=== PATIENT | female | born 1995 | race African-American/Black ===

== ENCOUNTER 2021-04-30 09:24 | Emergency (ER) | payer BC, MEDICAID ==
[~2021-04-30] VITALS: Ht 157.5 cm; Wt 72.0 kg
[2021-04-30 09:51] VITALS: BP 96/55
[2021-04-30 10:37] LABS: BASOPHILS % 0.9 % (0.0-2.0); EOSINOPHILS % 1.1 % (0.0-5.0); HEMATOCRIT. 33.2 % (36.0-48.0); HEMOGLOBIN. 10.4 g/dL (12.0-16.0); LYMPHOCYTES % 23.4 % (20.0-50.0); MEAN CORPUSCULAR VOLUME 70.2 fL (81.0-99.0); MEAN PLATELET VOLUME 9.3 fl (7.4-10.4); NEUTROPHILS % 64.6 % (40.0-76.0); PLATELET 347 x1000/uL (130-400); RED BLOOD CELL COUNT 4.72 mill/uL (4.2-5.4); RED CELL DISTRIBUTION WIDTH 18.3 % (11.6-14.6)
[2021-04-30 10:46] LABS: CHLORIDE 108 mEq/L (98-107)
[2021-04-30 10:52] LABS: HCG SCREEN NEGATIVE
[2021-04-30] MEDS ORDERED: FUROSEMIDE 40MG/4ML VIAL IVP ONE (12:00)
[2021-04-30] MEDS ORDERED: FUROSEMIDE 20MG/2ML VIAL IVP ONE (12:15)
[2021-04-30] MEDS ORDERED: ONDANSETRON HCL 4MG/2ML INJ IV PRN (21:00)
[2021-04-30] MEDS ORDERED: CLONIDINE 0.1MG TABLET PO PRN (21:00)
[2021-04-30] MEDS ORDERED: ACETAMINOPHEN 325MG TABLET PO PRN (21:00)
[2021-04-30] MEDS ORDERED: HYDROCODONE/ACETAMINOPHEN 5/325MG TABLET PO PRN (21:00)
[2021-04-30] MEDS ORDERED: HYDROMORPHONE HCL/PF 2MG/ML CPJ IV PRN (21:00)
[2021-04-30] MEDS ORDERED: NALOXONE HCL 0.4MG/ML VIAL IV PRN (21:15)
[2021-04-30] MEDS ORDERED: ENOXAPARIN 40MG/0.4ML SYR SUBCUT SCH (22:00)
[2021-05-01] MEDS ORDERED: FUROSEMIDE 40MG/4ML VIAL IV SCH (09:00)
== END 2021-04-30 23:50 | disposition left against medical advice (07) ==
LOC: ER 09:24 → CANRESERV 22:36 → ENRESERV 22:36 → ER 23:50 → CANBEDREQ 05-01 18:38
DX: I50.9 Heart failure, unspecified (principal); R06.02 Shortness of breath; Z20.822 Contact with and (suspected) exposure to COVID-19
CPT/HCPCS: 36415; 71045; 80053; 83880; 84484; 84703; 85025; 87426; 93005; 99285